=== PATIENT | female | born 1970 | race Caucasian/White ===

== ENCOUNTER 2018-07-19 14:20 | Emergency (ER) | payer MEDICAID ==
[2018-07-19] MEDS ORDERED: Benzocaine 20% Topical Spray UD MUCMEM ONE (14:57)
[2018-07-19] MEDS ORDERED: Lidocaine 2% Viscous Solution 15 ML Cup PO ONE (14:57)
[2018-07-19] MEDS ORDERED: Ketorolac 60 MG/2 ML SDV IM ONE (15:02)
--- NOTE | 2018-07-19 15:04 | EDM.PDOC ---
ED HPI GENERAL MEDICAL PROBLEM - General Chief Complaint: ENT Problem Stated Complaint: BAD TOOTH ACHE Time Seen by Provider: 07/19/18 15:02 Source of Information: Reports: Patient History Limitations: Reports: No Limitations - History of Present Illness INITIAL COMMENTS - FREE TEXT/NARRATIVE: HISTORY AND PHYSICAL: History of present illness: Patient is a 48-year-old female here with complaint of dental pain. She states it started 4 days ago. She states that the swelling on her right lower jaw started this morning. He is taking Tylenol and Motrin without relief. Has not scheduled appointment with dentist. She denies any nausea, vomiting, abdominal pain, fevers, chills. Review of systems: As per history of present illness and below otherwise all systems reviewed and negative. Past medical history: As per history of present illness and as reviewed below otherwise noncontributory. Surgical history: As per history of present illness and as reviewed below otherwise noncontributory. Social history: No reported history of drug or alcohol abuse. Family history: As per history of present illness and as reviewed below otherwise noncontributory. Physical exam: General: patient sitting comfortably in no acute distress HEENT: Slight erythema and swelling to the right lower gumline near the bicuspids. Poor dentition noted. Atraumatic, normocephalic, pupils reactive, negative for conjunctival pallor or scleral icterus, mucous membranes moist, throat clear, neck supple, nontender, trachea midline. Lungs: Clear to auscultation, breath sounds equal bilaterally, chest nontender. Heart: S1S2, regular, negative for clicks, rubs, or overt murmur Extremities: Atraumatic, negative for cords or calf pain. Neurovascular unremarkable. Neuro: Awake, alert, oriented. Cranial nerves II through XII unremarkable. Cerebellum unremarkable. Motor and sensory unremarkable throughout. Exam nonfocal. Notes: Diagnostics: None Therapeutics: Toradol 60mg IM Prescription: Penicillin 500mg Dental balls Impression: Dental infection and pain Plan: 1. Take antibiotic as directed. Alternate tylenol and motrin as needed. 2. Follow up with dentist as discussed 3. Return to ED as needed as discussed Definitive disposition and diagnosis as appropriate pending reevaluation and review of above. - Related Data Allergies Allergy/AdvReac Type Severity Reaction Status Date / Time codeine Allergy Difficulty Verified 07/19/18 15:08 Breathing Sulfa (Sulfonamide Allergy Abdominal Verified 07/19/18 15:08 Antibiotics) Pain Home Meds: Home Meds Penicillin V Potassium 500 mg PO Q6HR 7 Days #40 tab 07/19/18 [Rx] ED ROS ENT - Review of Systems Review Of Systems: ROS reveals no pertinent complaints other than HPI. ED EXAM, ENT - Physical Exam Exam: See Below (see dictation) Course - Vital Signs Last Recorded V/S: Last Vital Signs Temp 36.8 C 07/19/18 14:20 Pulse 76 07/19/18 14:20 Resp 18 07/19/18 14:20 BP 136/77 07/19/18 14:20 Pulse Ox 97 07/19/18 14:20 - Orders/Labs/Meds Meds: Medications Discontinued Medications Generic Name Dose Route Start Last Admin Trade Name Maria T PRN Reason Stop Dose Admin Benzocaine 2 each 07/19/18 14:57 Hurricaine One 20% MUCMEM 07/19/18 14:58 ONETIME ONE Ketorolac Tromethamine 60 mg 07/19/18 15:02 Toradol IM 07/19/18 15:03 ONETIME ONE Lidocaine HCl 15 ml 07/19/18 14:57 Xylocaine 2% Viscous PO 07/19/18 14:58 ONETIME ONE Departure - Departure Time of Disposition: 15:04 Disposition: Home, Self-Care 01 Condition: Good Clinical Impression: Dental infection - Discharge Information Prescriptions: Penicillin V Potassium 500 mg PO Q6HR 7 Days #40 tab Referrals: PCP,None [Primary Care Provider] - Forms: ED Department Discharge Additional Instructions: The following information is given to patients seen in the emergency department who are being discharged to home. This information is to outline your options for follow-up care. We provide all patients seen in our emergency department with a follow-up referral. The need for follow-up, as well as the timing and circumstances, are variable depending upon the specifics of your emergency department visit. If you don't have a primary care physician on staff, we will provide you with a referral. We always advise you to contact your personal physician following an emergency department visit to inform them of the circumstance of the visit and for follow-up with them and/or the need for any referrals to a consulting specialist. The emergency department will also refer you to a specialist when appropriate. This referral assures that you have the opportunity for follow-up care with a specialist. All of these measure are taken in an effort to provide you with optimal care, which includes your follow-up. Under all circumstances we always encourage you to contact your private physician who remains a resource for coordinating your care. When calling for follow-up care, please make the office aware that this follow-up is from your recent emergency room visit. If for any reason you are refused follow-up, please contact the [facility] Emergency Department at and asked to speak to the emergency department charge nurse. 1. Take antibiotic as directed. Alternate tylenol and motrin as needed. 2. Follow up with dentist as discussed 3. Return to ED as needed as discussed
== END 2018-07-19 15:30 | disposition home or self-care (01) ==
LOC: MW.ED 14:20
DX: K04.7 Periapical abscess without sinus (principal); Z88.5 Allergy status to narcotic agent; Z88.2 Allergy status to sulfonamides
CPT/HCPCS: 96372; 99282; A9270; J1885